=== PATIENT | female | born 1990 | race Caucasian/White ===

== ENCOUNTER 2021-03-02 20:32 | Emergency (ER) | payer MEDICAID ==
[~2021-03-02] VITALS: Ht 170.2 cm; Wt 99.8 kg
[2021-03-02 20:48] VITALS: BP 156/106
--- NOTE | 2021-03-02 21:00 | NUR ---
Pt ambulated to bed 03.
--- NOTE | 2021-03-02 21:06 | NUR ---
30 YO F BIB SELF WITH C/C OF 10/10 R ABD PAIN THAT RADIATES TO R FLANK, FEELS LIKE PRESSURE PER PT X1DAY. PAIN IS CONSTANT. +NAUSEA, +DIARRHEA (NO BLOOD IN STOOL). -FEVER, CHILLS, VOMITING. REPORTS INCREASED URINATION, NO BURNING, CLEAR. PT STATES SHE IS ABLE TO EAT BUT SHORTLY AFTER FEELS NAUSEOUS. PT IS TAKING PCN FOR A ROOT CANAL. TOOK 400MG OF IBUPROFEN LAST NIGHT WITH NO RELIEF. DENIES HX, RX AND ALLERG LMP: 02/26
[2021-03-02] MEDS ORDERED: KETOROLAC 30 MG/ML VIAL IVP ONE (21:10)
[2021-03-02] MEDS ORDERED: NACL 0.9% 1,000 ML IV SCH (21:10)
--- NOTE | 2021-03-02 21:15 | NUR ---
LAB AT BEDSIDE.
[2021-03-02 21:31] LABS: APPEARANCE,URINE CLEAR (CLEAR); BILIRUBIN,URINE NEGATIVE (NEGATIVE); BLOOD, URINE NEGATIVE (NEGATIVE); COLOR,URINE YELLOW (YELLOW); LEUKOCYTE ESTERASE ,URINE NEGATIVE (NEGATIVE); NITRITE, URINE NEGATIVE (NEGATIVE); PH,URINE 5.5 (5.0-9.0); UGLUCOSE NEGATIVE (NEGATIVE)
[2021-03-02 21:33] LABS: BASOPHILS % (AUTO) 0.4 % (0.0-2.0); EOSINOPHILS # (AUTO) 0.1 K/uL (0-0.4); EOSINOPHILS % (AUTO) 1.3 % (0.0-4.0); HEMOGLOBIN 13.7 g/dL (12.0-16.0); LYMPHOCYTES # (AUTO) 3.8 K/uL (2.5-16.5); LYMPHOCYTES % (AUTO) 45.2 % (20.5-51.1); MEAN CORPUSCULAR HEMOGLOBIN 26 pg (27-31); MEAN CORPUSCULAR HGB CONC 33 g/dL (33-37); MEAN CORPUSCULAR VOLUME 78.5 fL (80-94); MONOCYTES # (AUTO) 0.4 K/uL (0.8-1.0); MONOCYTES % (AUTO) 5.3 % (1.7-9.3); NEUTROPHILS # (AUTO) 4.1 K/uL (1.8-7.7); NEUTROPHILS % (AUTO) 47.8 % (42.2-75.2); PLATELET COUNT (AUTO) 363 K/uL (140-450); RED BLOOD CELL COUNT(AUTO) 5.35 MIL/uL (4.20-5.40); RED CELL DISTRIBUTION WIDTH 15.2 % (11.6-13.7); WHITE BLOOD COUNT (AUTO) 8.5 K/uL (4.8-10.8)
--- NOTE | 2021-03-02 21:37 | NUR ---
PT TAKEN TO CT.
--- NOTE | 2021-03-02 21:42 | NUR ---
BACK FROM CT.
[2021-03-02 21:55] LABS: ANION GAP 13.7 (8-16); CARBON DIOXIDE 28.1 mmol/L (21-32); POTASSIUM 3.8 mmol/L (3.5-5.1); TOTAL BILIRUBIN 0.5 mg/dL (0.0-1.0)
--- NOTE | 2021-03-02 22:34 | NUR ---
PT IS IN STABLE CONDITION. VSS. PT REPORTS SHE FEELS MUCH BETTER, PAIN DECREASED. ALL NEEDS MET AT THIS TIME. EQUAL RISE AND FALL OF CHEST WALL. BED LOCKED IN LOWEST POSITION, SIDE RAILS X2.
--- NOTE | 2021-03-02 22:39 | NUR ---
JIN LOPEZ AT BEDSIDE.
[2021-03-02] MEDS ORDERED: CEPH-588 PO (22:45)
[2021-03-02 22:52] VITALS: BP 122/75
== END 2021-03-02 22:52 | disposition home or self-care (01) ==
LOC: MED 20:32
DX: R10.9 Unspecified abdominal pain (principal); R35.0 Frequency of micturition; R11.0 Nausea; Z79.899 Other long term (current) drug therapy
CPT/HCPCS: 36415; 74176; 80053; 81003; 81025; 83690; 85025; 96361; 96374; 99284; J1885; J7030